=== PATIENT | female | born 1990 | race Caucasian/White ===

== ENCOUNTER → 2022-07-03 15:17 | Outpatient (CLI) | payer OTHER, SELFPAY ==
--- NOTE | 2022-07-03 15:28 | MR_ITS ---
FINAL REPORT CLINICAL HISTORY: headaches ocular migraines FINDINGS: Multiplanar MR imaging of the brain was performed without contrast. There is no evidence of intracranial hemorrhage or mass. The ventricular size is normal. There is no evidence of shift of the midline structures. No abnormal extra-axial fluid collection is identified. The posterior fossa and brainstem have an unremarkable appearance. No area of abnormal restricted diffusion is identified. Normal major vessel vascular flow voids are seen. IMPRESSION: Unremarkable brain with no acute intracranial abnormality. Reviewed, Interpreted and Dictated by Tony Vaca III, MD Transcribed by Mitch Gomez Authenticated and . [facility]
[2022-07-03 17:21] LABS: Basophils # 0.1 K/mm3 (0-0.2); Basophils % 1.2 % (0.1-2.0); Eosinophils # 0.3 K/mm3 (0.0-0.4); Eosinophils % 5.3 % (0.1-12.0); Hematocrit 42.6 % (37.0-47.0); Hemoglobin 13.6 g/dL (12.2-16.2); Lymphocytes # 2.4 K/mm3 (0.7-4.5); Mean Corpuscular HGB Conc 31.9 g/dL (31.8-35.4); Mean Corpuscular Volume 94.1 fl (81-99); Mean Platelet Volume 9.3 fl (7.4-10.4); Monocytes # 0.3 K/mm3 (0.1-1.0); Monocytes % 5.1 % (1.7-9.3); Neutrophils # 2.8 K/mm3 (1.8-7.8); Neutrophils % 47.4 % (37.0-80.0); Platelet Count 317 K/mm3 (142-424); Red Blood Count 4.52 M/mm3 (4.20-5.40); Red Cell Distribution Width 12.7 % (11.5-17.5)
[2022-07-03 17:43] LABS: Alanine Aminotransferase 30 U/L (12-78); Albumin Level 3.8 g/dl (3.5-5.0); Albumin/Globulin Ratio 1.2 (1.1-1.8); Alkaline Phosphatase 65 U/L (38-126); Anion Gap 11.2 mEq/L (5-15); Aspartate Amino Transferase 33 U/L (14-36); Blood Urea Nitrogen 15 mg/dl (7-17); Calcium 9.2 mg/dl (8.4-10.2); Carbon Dioxide 29 mmol/L (22.0-30.0); Chloride 102 mmol/L (98-107); Estimated Glomerular Filt Rate 99 ml/min (>60); GFR (African American) 120 ML/MIN (>60); Globulin 3.1 g/dL (1.3-3.2); Glucose 85 mg/dl (74-100); Potassium 4.2 mmoL/L (3.5-5.1); Sodium 138 mmol/L (136-145); Total Protein,Serum 6.9 g/dl (6.3-8.2)
[2022-07-03 18:13] LABS: Thyroid Stimulating Hormone 2.11 uIU/mL (0.465-4.68)
[2022-07-03 18:15] LABS: Bilirubin,Total 0.1 mg/dl (0.2-1.3)
[2022-07-03 18:48] LABS: Vitamin B12 555 pg/mL (239-931)
[2022-07-03 19:09] LABS: Folate 9.59 ng/mL
== END ==
PROVIDERS: PCP Nurse Practitioner Family; Visit Provider Nurse Practitioner Family
DX: G43.109 Migraine with aura, not intractable, without status migrainosus (principal); G44.209 Tension-type headache, unspecified, not intractable; G43.709 Chronic migraine without aura, not intractable, without status migrainosus; G44.40 Drug-induced headache, not elsewhere classified, not intractable; G43.829 Menstrual migraine, not intractable, without status migrainosus; H53.413 Scotoma involving central area, bilateral; F39 Unspecified mood [affective] disorder; G47.9 Sleep disorder, unspecified; R40.0 Somnolence; R53.83 Other fatigue; Z86.69 Personal history of other diseases of the nervous system and sense organs; Z87.898 Personal history of other specified conditions
CPT/HCPCS: 36415; 70551; 80053; 82607; 82746; 84443; 85025

== ENCOUNTER → 2022-07-05 15:51 | Outpatient (CLI) | payer OTHER, SELFPAY | PROVIDERS: PCP Nurse Practitioner Family; Visit Provider Nurse Practitioner Family | DX: G47.30 Sleep apnea, unspecified (principal); R40.0 Somnolence | CPT/HCPCS: G0399 ==